=== PATIENT | female | born 1955 | race Caucasian/White ===

== ENCOUNTER 2019-04-15 06:25 | Day surgery (SDC) | payer BC ==
[~2019-04-15 06:25] MED LIST: Lactated Ringers 1,000 ML IV SCH; Lidocaine 1%/Sod Bicarbonate in NS 8.4% 1 ML Syringe IDERM PRN; Sodium Chloride 0.9% 10 ML Syringe FLUSH PRN
[2019-04-15] MEDS ORDERED: Lidocaine 1% 30 ML SDV ONE (06:33)
[2019-04-15] MEDS ORDERED: Bupivacaine 0.25% 10 ML SDV ONE (06:33)
--- NOTE | 2019-04-15 06:54 | PCM.PREANE ---
Preanesthetic Assessment - Procedure Proposed Procedure: excision of right ring finger mass - Anesthesia/Transfusion/Family Hx Anesthesia History: Prior Anesthesia Without Reaction (occasional nausea and vomit) Family History of Anesthesia Reaction: No Transfusion History: No Prior Transfusion(s) - Review of Systems General: No Symptoms Pulmonary: No Symptoms Cardiovascular: No Symptoms Gastrointestinal: No Symptoms Neurological: No Symptoms Other: Reports: Diabetes, Thyroid Problems - Physical Assessment NPO Status Date: 04/14/19 NPO Status Time: 18:00 Vital Signs: 143/79 66 95% 16 97.1 Height: 5 ft 4 in Weight: 79.651 kg ASA Class: 2 Mental Status: Alert & Oriented x3 Airway Class: Mallampati = 1 Dentition: Reports: Normal Dentition Thyro-Mental Finger Breadths: 3 Mouth Opening Finger Breadths: 3 ROM/Head Extension: Full Lungs: Clear to Auscultation, Normal Respiratory Effort Cardiovascular: Regular Rate, Regular Rhythm - Lab Values: Laboratory Last Values MRSA (PCR) Negative 04/07/19 14:15 - Allergies Allergies/Adverse Reactions: Allergies Allergy/AdvReac Type Severity Reaction Status Date / Time No Known Allergies Allergy Verified 04/14/19 13:07 - Blood Blood Available: No - Acknowledgements Anesthesia Type Planned: MAC Pt an Appropriate Candidate for the Planned Anesthesia: Yes Alternatives and Risks of Anesthesia Discussed w Pt/Guardian: Yes Pt/Guardian Understands and Agrees with Anesthesia Plan: Yes PreAnesthesia Questionnaire Cardiovascular History: Reports: High Cholesterol Respiratory History: Reports: None Gastrointestinal History: Reports: Colon Polyp, GERD, Hemorrhoids INFORMATION SECURITY CONSULTANT History: Reports: Other (See Below) Other OB/BYN History: uterine polypectomy Musculoskeletal History: Reports: None Psychiatric History: Reports: None Endocrine/Metabolic History: Reports: Diabetes, Type II, Hypothyroidism Hematologic History: Reports: None Immunologic History: Reports: None Oncologic (Cancer) History: Reports: None Dermatologic History: Reports: None - Past Surgical History HEENT Surgical History: Reports: Adenoidectomy Cardiovascular Surgical History: Reports: None Respiratory Surgical History: Reports: None GI Surgical History: Reports: Cholecystectomy, Colonoscopy Female Surgical History: Reports: D&C, Tubal Ligation Endocrine Surgical History: Reports: None Neurological Surgical History: Reports: Lumbar Spine Musculoskeletal Surgical History: Reports: None Oncologic Surgical History: Reports: None Dermatological Surgical History: Reports: None - SUBSTANCE USE Smoking Status *Q: Never Smoker Tobacco Use Within Last Twelve Months: No Second Hand Smoke Exposure: No Days Per Week of Alcohol Use: 0 Recreational Drug Use History: No - HOME MEDS Home Medications: Home Meds Lactobacillus Combo No.10 [Probiotic] 1 cap PO DAILY 03/18/14 [History] Aspirin [Low Dose Aspirin EC] 81 mg PO DAILY 04/14/19 [History] Enalapril Maleate 2.5 mg PO DAILY 04/14/19 [History] Ferrous Sulfate [Iron] 325 mg PO DAILY 04/14/19 [History] Levothyroxine 25 mg PO DAILY 04/14/19 [History] Multivitamin [Daily Multiple Vitamin] 1 tab PO DAILY 04/14/19 [History] Rosuvastatin Calcium 5 mg PO DAILY 04/14/19 [History] metFORMIN HCl [Metformin HCl ER] 1,000 mg PO BID 04/14/19 [History] - CURRENT (IN HOUSE) MEDS Current Meds: Current Medications Lactated Ringer's (Ringers, Lactated) 1,000 mls @ 125 mls/hr IV ASDIRECTED JAY Stop: 04/15/19 23:00 Lidocaine/Sodium Bicarbonate (Buffered Lidocaine 1% In Ns 8.4%) 0.25 ml IDERM ONETIME PRN PRN Reason: Prior to IV Start Stop: 04/15/19 18:00 Sodium Chloride (Saline Flush) 10 ml FLUSH ASDIRECTED PRN PRN Reason: Keep Vein Open Stop: 04/15/19 18:00 Discontinued Medications Bupivacaine HCl (Sensorcaine-Mpf 0.25%) Confirm Administered Dose 30 ml .ROUTE .STK-MED ONE Stop: 04/15/19 06:34 Lidocaine HCl (Xylocaine-Mpf 1%) Confirm Administered Dose 30 ml .ROUTE .STK- MED ONE Stop: 04/15/19 06:34
[2019-04-15] MEDS ORDERED: Lidocaine 1% 4 ML ONE (06:56)
[2019-04-15] MEDS ORDERED: Midazolam 1 MG/ML 2 ML SDV ONE (06:57)
[2019-04-15] MEDS ORDERED: Propofol 200 MG/20 ML SDV ONE (06:57)
[2019-04-15] MEDS ORDERED: fentaNYL 100 MCG/2 ML SDV ONE (06:57)
[2019-04-15] MEDS ORDERED: Ondansetron 4 MG/2 ML SDV IVPUSH PRN (07:09)
[2019-04-15] MEDS ORDERED: Ondansetron 4 MG/2 ML SDV ONE (07:30)
--- NOTE | 2019-04-15 07:53 | PCM48HPAN ---
Post Anesthesia Note - EVALUATION WITHIN 48HRS OF ANESTHETIC Vital Signs in Normal Range: Yes Patient Participated in Evaluation: Yes Respiratory Function Stable: Yes Airway Patent: Yes Cardiovascular Function Stable: Yes Hydration Status Stable: Yes Pain Control Satisfactory: Yes Nausea and Vomiting Control Satisfactory: Yes Mental Status Recovered: Yes Vital Signs: Last Vital Signs Temp 97.1 F 04/15/19 06:40 Pulse 66 04/15/19 06:40 Resp 16 04/15/19 06:40 BP 143/79 H 04/15/19 06:40 Pulse Ox 95 04/15/19 06:40 0747 129/67 100% 66 15 98.2
[2019-04-15 08:18] VITALS: BP 119/74
--- NOTE | 2019-04-19 07:07 | PCM.OPNOTE ---
- General Post-Op/Procedure Note Date of Surgery/Procedure: 04/15/19 Operative Procedure(s): excision mass right ring finger Pre Op Diagnosis: mass right ring finger DIP Post-Op Diagnosis: Same Anesthesia Technique: Local, MAC Primary Surgeon: Aleks Nguyen Anesthesia Provider: Tip Florian Business Controller: Evelyn Mendenhall EBL in mLs: 5 Complications: None Condition: Good
--- NOTE | 2019-04-19 08:07 | OR ---
DATE OF OPERATION: 04/15/2019 SURGEON: Aleks Nguyen MD OPERATION PERFORMED: Excision of mass, right ring finger. PREOPERATIVE DIAGNOSIS: Mass, right ring finger distal interphalangeal. POSTOPERATIVE DIAGNOSIS: Mass, right ring finger distal interphalangeal. ANESTHESIA: Local MAC. ANESTHESIA PROVIDER: Tip Florian CRNA. OREMAN: Evelyn Mendenhall PA-C. ESTIMATED BLOOD LOSS: Less than 5 mL. COMPLICATIONS: None. CONDITION: Stable. DESCRIPTION OF PROCEDURE: The patient was identified in the preoperative holding area. Proper site was marked and identified by surgeon. The patient was taken back to the operating theater, where after adequate anesthesia, the patient's right upper extremity was sterilely prepped and draped in the usual sterile fashion. OR time-out was performed. The patient received 2 g of IV Ancef. At this time, a digital block using 1% lidocaine without epinephrine and 0.25% Marcaine without epinephrine was then done. Once this had set up, the mass on the ulnar side of the right ring finger DIP had a dorsal lateral incision. This was taken down. The patient was noted to have tophus type material versus rheumatoid nodule type material that was white and chalky in nature down all the way into the joint. At this time, the joint was then debrided and irrigated, and the mass was excised. All of the material was excised at this time. Adequate saline was then irrigated through the wound. 4-0 nylon simple suture was used for closure of the skin. The patient was placed in a sterile soft dressing and sent to PACU in stable condition. MMODAL /[id number]
== END 2019-04-15 08:25 | disposition home or self-care (01) ==
LOC: JD.SDS 06:25
PROVIDERS: ATTEND Orthopaedic Surgery
DX: M25.841 Other specified joint disorders, right hand (principal); E78.00 Pure hypercholesterolemia, unspecified; E11.9 Type 2 diabetes mellitus without complications; E03.9 Hypothyroidism, unspecified; Z79.82 Long term (current) use of aspirin; Z79.84 Long term (current) use of oral hypoglycemic drugs; Z79.899 Other long term (current) drug therapy
CPT/HCPCS: 26210; 82962; 87641; J2001; J2250; J2405; J2704; J3010; J3490; J7120